=== PATIENT | male | born 1950 | race Asian ===

== ENCOUNTER 2017-04-12 10:04 | Emergency (ER) | payer MEDICARE, MEDICAID ==
[~2017-04-12] VITALS: Ht 175.3 cm; Wt 77.1 kg
[~2017-04-12 10:04] MED LIST: LOSA50TA26 PO; METF-489 PO
[2017-04-12 11:01] LABS: Basophils # (auto) 0 uL; CONDITION Y; Eosinophils # (auto) 0.1 uL; Eosinophils % (auto) 0.6 % (0.0-7.0); Hematocrit 44.4 % (41.0-53.0); Hemoglobin 14.7 g/dL (13.5-17.5); Lymphocytes # (auto) 1.5 uL; Lymphocytes % (auto) 12.2 % (10.0-50.0); Mean Corpuscular Hemoglobin 30.8 pg (28.0-32.0); Mean Corpuscular Volume 93.3 fL (80.0-100.0); Mean Platelet Volume 7.9 fL (7.4-10.4); Monocytes # (auto) 0.5 uL; Monocytes % (auto) 4.4 % (0.0-12.0); Neutrophils # (auto) 10.2 uL; Neutrophils % (auto) 82.8 % (37.0-80.0); Platelet Count (auto) 274 10^3/uL (140-450); Red Cell Distribution Width 13.7 % (11.6-16.0); White Blood Cell 12.3 10^3/uL (4.4-10.8)
[2017-04-12 11:20] LABS: Albumin 3.6 g/dL (3.4-5.0); Anion Gap 9 (5-15); Aspartate Aminotransferase 37 U/L (15-37); BUN/Creatinine Ratio 15.7; Blood Urea Nitrogen 14 mg/dL (7-18); Calcium 8.3 mg/dL (8.5-10.1); Carbon Dioxide 25 mmol/L (21-32); Chloride 109 mmol/L (98-107); GFR African American 110 mL/min; GFR Non-African American 91 mL/min; Glucose 121 mg/dL (74-106); Magnesium 2.3 mg/dL (1.6-2.6); Potassium 4.2 mmol/L (3.5-5.1); Sodium 143 mmol/L (136-145)
[2017-04-12 11:25] LABS: Alkaline Phosphatase 97 U/L (45-117); Bilirubin, Total 0.6 mg/dL (0.2-1.0); Total Protein 6.9 g/dL (6.4-8.2)
[2017-04-12 12:41] VITALS: BP 122/70
== END 2017-04-12 13:04 | disposition home or self-care (01) ==
LOC: EDUNIT# 10:04 → ER 10:06
DX: N40.0 Benign prostatic hyperplasia without lower urinary tract symptoms (principal); K59.00 Constipation, unspecified; E11.22 Type 2 diabetes mellitus with diabetic chronic kidney disease; N18.9 Chronic kidney disease, unspecified; E78.5 Hyperlipidemia, unspecified; I12.9 Hypertensive chronic kidney disease with stage 1 through stage 4 chronic kidney disease, or unspecified chronic kidney disease; Z87.442 Personal history of urinary calculi
CPT/HCPCS: 36415; 71010; 74176; 80053; 83735; 84484; 85025; 93005; 94761

== ENCOUNTER 2017-10-28 15:07 | Emergency (ER) | payer OTHER, MEDICARE, MEDICAID ==
[~2017-10-28] VITALS: Ht 175.3 cm; Wt 83.9 kg
[2017-10-28 15:17] VITALS: BP 107/59
== END 2017-10-28 18:48 | disposition left against medical advice (07) ==
LOC: ER 15:07
DX: M54.5 Low back pain (principal); Z53.21 Procedure and treatment not carried out due to patient leaving prior to being seen by health care provider
CPT/HCPCS: 72110